=== PATIENT | male | born 1990 | race Caucasian/White ===

== ENCOUNTER 2021-06-29 08:45 | Emergency (ER) | payer OTHER, SELFPAY ==
--- NOTE | ~2021-06-29 | XR_ITS ---
EXAMINATION: XR chest 2V DATE: 06/29/2021 09:40 INDICATION: Right upper back pain and shortness of breath TECHNIQUE: PA and lateral views of the chest were obtained. COMPARISON: Chest radiograph dated 10/08/2013 FINDINGS: The lungs remain clear with no focal airspace opacities, pulmonary edema, pleural effusion or pneumot horax. The cardiomediastinal silhouette is normal. Visualized bones and soft tissues are unremarkable . IMPRESSION: 1. No acute cardiopulmonary disease. Reviewed, dictated and finalized at [facility].
--- NOTE | ~2021-06-29 | CT_ITS ---
EXAMINATION: CTA chest PE protocol DATE: 06/29/2021 11:41 INDICATION: Shortness of breath. Elevated d-dimer. Right upper posterior chest pain. TECHNIQUE: Computed tomography (CT) pulmonary angiogram of the chest was performed with 100 mL Omnipa que-350 intravenous contrast. Additional 3D reconstructions utilizing coronal maximum intensity proje ction (MIP) were performed. Automated exposure control and iterative reconstruction technique were em ployed. The dose-length product was 344.62 mGy-cm. COMPARISON: None FINDINGS: Good contrast opacification of the pulmonary arteries. There is mild streak artifact from dense contr ast in the superior vena cava and right atrium. Mild scattered respiratory motion artifact which does not significantly limit evaluation. Pulmonary embolism in the lateral basilar segmental and more per ipheral subsegmental pulmonary arteries of the right lower lobe. No other pulmonary emboli identified . Reticular and groundglass opacities in the lateral basilar segment of the right lower lobe peripher al to the embolized pulmonary artery likely combination of pulmonary infarct and atelectasis. No pneu monia, pulmonary edema, pleural effusion or pneumothorax. Heart size is normal. No rightward bowing o f the ventricular septum to suggest right heart strain. No pericardial effusion. Thoracic aorta is no rmal in caliber with no dissection. No pathologically enlarged thoracic lymphadenopathy. 8 mm cyst in the right hepatic lobe. Visualized upper abdomen is otherwise unremarkable. Bones are unremarkable. IMPRESSION: 1. Pulmonary embolism with relatively low clot burden in the lateral basilar pulmonary of the right l ower lobe with associated more peripheral lung disease likely combination of infarct and atelectasis. No associated right heart strain. Reviewed, dictated and finalized at location [facility]. IMPRESSION: 1. Pulmonary embolism with relatively low clot burden in the lateral basilar pu lmonary of the right lower lobe with associated more peripheral lung disease li alex combination of infarct and atelectasis. No associated right heart strain.
[2021-06-29 09:07] VITALS: BP 120/91; PULSE 80; RESP 20; TEMP 36.7; O2SAT 98
--- NOTE | 2021-06-29 09:29 | ECG_ITS ---
Measurements Intervals [place] Rate: 67 P: 68 OK: 138 QRS: 63 QRSD: 113 T: 62 QT: 381 QTc: 405 Interpretive Statements SINUS RHYTHM WITH SINUS ARRHYTHMIA NORMAL ELECTROCARDIOGRAM NO PREVIOUS ECG AVAILABLE FOR COMPARISON Electronically Signed On 06-29-2021 16:58:52 CDT by Edgar Kelly M.D.
--- NOTE | 2021-06-29 09:36 | ED.SOB ---
HPI - SOB/Dyspnea General Chief Complaint: Shortness of Breath/Dyspnea Stated Complaint: RIGHT SIDED PAIN Source: patient Mode of arrival: ambulatory Limitations: no limitations History of Present Illness HPI Narrative: this is a 31-year-old gentleman presents with some pain right lower lung field specially with movement and deep inspiration no history of asthma, the patient is a smoker no recent illnesses, there is no cough. No fever chills no chest pain no abdominal pain no dysuria or hematuria. Onset (ago): hour(s) Timing: constant Severity: moderate Exacerbating factors: movement and other ( With deep inspiration) Relieving factors: nothing Related Data Allergies Allergy/AdvReac Type Severity Reaction Status Date / Time No Known Allergies Allergy Verified 06/29/21 12:24 Review of Systems Review of Systems: All systems reviewed & are unremarkable except as noted in HPI and below PMFSH Past Medical History Medical History Patient denies medical problems Exam Const: General: no acute distress and alert Orientation/consciousness: patient oriented x3 HENMT: Head: normal to inspection Eyes: Conjunctivae: conjunctivae normal Pupils: Equal, round and reactive pupils present Neck: Neck: normal visual inspection, no lymphadenopathy and no meningeal signs Chest: Chest palpation & inspection: normal inspection of the chest Resp: Effort & Inspection: normal respiratory effort Auscultation: clear to auscultation bilaterally Cardio: Rate: regular rate Rhythm: regular rhythm GI: GI Palp: Yes Soft to palpation Percussion: Yes normal to percussion : Testes: Testes normal Urinary Catheter: Urinary Catheter: patent and draining Skin: General skin exam: normal color Rashes: no rashes Neuro: General: patient oriented x3 and moves all extremities Extrem: General: normal to inspection and no pedal edema Psych: Mental Status: mental status grossly normal Affect: normal affect Attitude: cooperative Course Course Emergency Course: patient had EKG blood work and a chest x-ray performed, patient received IM Toradol and after reassessment patient's pain level has improved. Vital Signs Vital signs: Vital Signs Temperature 36.7 C 06/29/21 09:07 Pulse Rate 80 06/29/21 09:07 Respiratory Rate 20 06/29/21 09:07 Blood Pressure 120/91 H 06/29/21 09:07 Pulse Oximetry 98 06/29/21 09:07 Temperature 36.7 C 06/29/21 09:07 Pulse Rate 80 06/29/21 09:07 Respiratory Rate 20 06/29/21 09:07 Blood Pressure 120/91 H 06/29/21 09:07 Pulse Oximetry 98 06/29/21 09:07 Critical Care Time Critical Care Time Critical Care Time: No Discharge Plan Discharge Clinical Impression: Pulmonary embolism Qualifiers: Pulmonary embolism type: unspecified Chronicity: acute Acute cor pulmonale presence: without acute cor pulmonale Qualified Code(s): I26.99 - Other pulmonary embolism without acute cor pulmonale Patient Disposition: Home, Self-Care Condition: Stable Instructions: Antibiotic Form, Pulmonary Embolism (ED) Additional Instructions: take medicine as prescribed, avoid any kind of ibuprofen pain medication, can only take Tylenol extra-strength and follow with primary care physician within 1 week for further evaluation and treatment. Prescriptions: New Eliquis 5 mg tablet 10 mg PO BID Qty: 14 RF: 0 Follow-up/Referrals: Bennie Rudolph MD [Primary Care Provider] - Time of Disposition: 12:40
[2021-06-29] MEDS: KETOROLAC (*BKC) 60 MG/2 ML VIAL IM (09:44)
[2021-06-29 09:52] LABS: Basophils Absolute Auto 0.09 K/mm3 (0.00-0.10); Basophils Percent Auto 0.6 % (0.0-1.0); Eosinophils Absolute Auto 0.24 K/mm3 (0.02-0.50); Eosinophils Percent Auto 1.7 % (1.0-6.0); Hematocrit 43.5 % (40.0-54.0); Hemoglobin 15.2 g/dL (14.0-18.0); Immature Granulocyte Absolute 0.05 K/mm3 (0.00-0.00); Immature Granulocyte Percent A 0.4 % (0.0-0.0); Lymphocytes Absolute Auto 2.27 K/mm3 (1.10-4.50); Lymphocytes Percent Auto 16.2 % (18.0-42.0); Mean Corpuscular HGB Conc 34.9 g/dL (32.0-36.0); Mean Corpuscular Hemoglobin 32.8 pg (27.0-31.0); Mean Corpuscular Volume 93.8 fL (78.0-102.0); Mean Platelet Volume 9.9 fl (8.7-11.0); Monocytes Absolute Auto 1.31 K/mm3 (0.10-0.90); Monocytes Percent Auto 9.3 % (2.0-11.0); Neutrophils Absolute Auto 10.1 K/mm3 (1.7-7.2); Neutrophils Percent Auto 71.8 % (50.0-70.0); Platelet Count Result 277 K/mm3 (150-420); Red Blood Count 4.64 M/mm3 (4.70-6.10); Red Cell Distribution Width 12.9 % (11.6-14.4)
[2021-06-29 10:08] LABS: Alanine Aminotransferase 17 U/L (16-63); Albumin Level 3.5 g/dL (3.4-5.0); Alkaline Phosphatase 100 U/L (46-116); Anion Gap 9 mmol/L (8-16); Aspartate Amino Transferase 19 U/L (15-37); Bilirubin,Total 0.6 mg/dL (0.00-1.00); Blood Urea Nitrogen 6 mg/dL (7-18); Calcium 8.8 mg/dL (8.5-10.1); Carbon Dioxide 26 mmol/L (21-32); Chloride 101 mmol/L (98-108); Estimated CRCL calculation 111 ml/min; Estimated Glomerular Filt Rate > 60; Glucose 100 mg/dL (70-99); Osmolality Calculated 279 mOsm/kg (285-295); Potassium 3.6 mmol/L (3.5-5.1); Sodium 136 mmol/L (136-145); Total Protein 7.4 g/dL (6.4-8.2); Troponin I 4.7 ng/L (0.00-60.4)
[2021-06-29 10:24] LABS: D Dimer 0.97 mg/L (0.19-0.50)
[2021-06-29 11:12] VITALS: O2SAT 98
[2021-06-29] MEDS: APIXABAN 2.5 MG TABLET 10 MG PO (12:45)
[2021-06-29 12:50] VITALS: BP 120/91; PULSE 80; RESP 20; TEMP 36.7; O2SAT 98
--- NOTE | 2021-06-29 13:14 | PC.NURSE ---
pt is to follow up with Dr Perez
== END 2021-06-29 12:53 | disposition home or self-care (01) ==
PROVIDERS: Emergency Provider Emergency Medicine; PCP Internal Medicine
DX: I26.99 Other pulmonary embolism without acute cor pulmonale (principal)
CPT/HCPCS: 36415; 71046; 71275; 80053; 84484; 85025; 85380; 93005; 96372; 99284; A9270; J1885; Q9967

== ENCOUNTER 2021-06-30 08:26 | Emergency (ER) | payer OTHER, SELFPAY ==
--- NOTE | ~2021-06-30 | CT_ITS ---
EXAMINATION: CTA chest PE protocol DATE: 06/30/2021 10:14 INDICATION: Worsening chest pain, dyspnea. Known pulmonary embolism. TECHNIQUE: Computed tomography angiography (CTA) of the chest was performed with 100 mL Omnipaque-350 intravenous contrast timed to evaluate the pulmonary arteries. Coronal maximum intensity projection 3D-reconstructions were created by the technologist. Automated exposure control and iterative reconst ruction technique were employed. Exam dose: 485.76 mGy-cm total exam DLP. COMPARISON: 06/29/2021 CT pulmonary scan FINDINGS: Intraluminal arterial thrombus is identified in the posterior basilar and lateral basilar s egments of the right lower lobe, increased since 06/29/2021. There is increased right lower lobe infil trate consistent with right lower lobe infarct and atelectasis. There is minimal dependent atelectasis in the dependent left lower lobe. The lungs are otherwise gordy r. Normal heart size. No pericardial or pleural effusion. No thoracic aortic aneurysm or dissection. Probable 7.5 mm right hepatic cyst. IMPRESSION: Increased clot in the right lower lobe, involving posterior and lateral basilar segmenta l arteries, with increased right lower lobe infiltrate, likely due to combination of infarct and atel ectasis Reviewed, dictated and finalized at [facility]. Reviewed, dictated and finalized at location [facility]. IMPRESSION: Increased clot in the right lower lobe, involving posterior and la teral basilar segmental arteries, with increased right lower lobe infiltrate, l ikely due to combination of infarct and atelectasis
[2021-06-30 08:35] VITALS: BP 122/75; PULSE 72; RESP 20; TEMP 37.1; O2SAT 99
--- NOTE | 2021-06-30 08:50 | ED.SOB ---
HPI - SOB/Dyspnea General Chief Complaint: Shortness of Breath/Dyspnea <Hever Tran MD - Last Filed: 06/30/21 12:39> Stated Complaint: CHEST PAIN <Hever Tran MD - Last Filed: 06/30/21 12:39> Time Seen by Provider: 06/30/21 08:53 <Hever Tran MD - Last Filed: 06/30/21 12:39> Source: patient and RN notes reviewed <Hever Tran MD - Last Filed: 06/30/21 12:39> Mode of arrival: ambulatory <Hever Tran MD - Last Filed: 06/30/21 12:39> Limitations: no limitations <Hever Tran MD - Last Filed: 06/30/21 12:39> History of Present Illness HPI Narrative: Patient states he was diagnosed with the PE yesterday. He was sent home on Eliquis and Tylenol. He says he has been miserable overnight with increasing pain in his back chest. Hurts to take a deep breath. Hurts to lay down and has pain with movement. Feels like he is more short of breath than he was yesterday. <Hever Tran MD - Last Filed: 06/30/21 12:39> MD elicited complaint: shortness of breath and pain with inspiration <Hever Tran MD - Last Filed: 06/30/21 12:39> Pertinent past history: PE <Hever Tran MD - Last Filed: 06/30/21 12:39> Onset (ago): day(s) (2) <Hever Tran MD - Last Filed: 06/30/21 12:39> Timing: constant and progressively worsening <Hever Tran MD - Last Filed: 06/30/21 12:39> Severity: moderate <Hever Tran MD - Last Filed: 06/30/21 12:39> Exacerbating factors: lying flat, exertion, movement, inspiration and deep breaths <MD Marce Atkinson Last Filed: 06/30/21 12:39> Relieving factors: nothing <Hever Tran MD - Last Filed: 06/30/21 12:39> Known history of: PE <Hever Tran MD - Last Filed: 06/30/21 12:39> Associated symptoms: pain with inspiration <Hever Tran MD - Last Filed: 06/30/21 12:39> Treatment prior to arrival: none <Hever Tran MD - Last Filed: 06/30/21 12:39> Related Data Home oxygen amount: none <Hever Tran MD - Last Filed: 06/30/21 12:39> Allergies/Adverse Reactions: Allergies Allergy/AdvReac Type Severity Reaction Status Date / Time No Known Allergies Allergy Verified 06/29/21 12:24 <Hever Tran MD - Last Filed: 06/30/21 12:39> Review of Systems Review of Systems: All systems reviewed & are unremarkable except as noted in HPI and below <Hever Tran MD - Last Filed: 06/30/21 12:39> Constitutional: Constitutional: Denies chills and Denies fever(s) <Hever Tran MD - Last Filed: 06/30/21 12:39> Cardiovascular: Cardiovascular: Reports as per HPI and Denies rapid heart rate <Hever Tran MD - Last Filed: 06/30/21 12:39> Respiratory: Respiratory: Reports as per HPI <Hever Tran MD - Last Filed: 06/30/21 12:39> Gastrointestinal: Gastrointestinal: Denies nausea and Denies vomiting <Hever Tran MD - Last Filed: 06/30/21 12:39> PMFSH Past Medical History Medical History: Medical History (Updated 06/30/21 @ 12:25 by Hever Tran MD) Patient denies medical problems <Hever Tran MD - Last Filed: 06/30/21 12:39> Surgical History Surgical History: Surgical History (Updated 06/30/21 @ 09:10 by Hever Tran MD) No pertinent past surgical history <Hever Tran MD - Last Filed: 06/30/21 12:39> Exam Const: General: healthy appearing, no acute distress and alert <Hever Tran MD - Last Filed: 06/30/21 12:39> Nutritional Appearance: well nourished <Hever Tran MD - Last Filed: 06/30/21 12:39> Orientation/consciousness: patient oriented x3 <Hever Tran MD - Last Filed: 06/30/21 12:39> HENMT: Head: normal to inspection <Hever Tran MD - Last Filed: 06/30/21 12:39> Ears: external ears normal <Hever Tran MD - Last Filed: 06/30/21 12:39> Eyes: Conjunctivae: conjunctivae normal <Hever Tran MD - Last Filed: 06/30/21 12:39> Pupils: Equal, round and reactive pupils present
[2021-06-30 09:30] LABS: Anion Gap 9 mmol/L (8-16); Blood Urea Nitrogen 7 mg/dL (7-18); Calcium 8.7 mg/dL (8.5-10.1); Carbon Dioxide 25 mmol/L (21-32); Chloride 101 mmol/L (98-108); Estimated Glomerular Filt Rate > 60; Glucose 96 mg/dL (70-99); Osmolality Calculated 278 mOsm/kg (285-295); Potassium 3.7 mmol/L (3.5-5.1); Sodium 135 mmol/L (136-145)
[2021-06-30] MEDS: HYDROmorphone HCL INJ (*CRX) 2 MG/ML VIAL 0.5 MG IV PUSH (09:46)
[2021-06-30] MEDS: SODIUM CHLORIDE 0.9% IV 1,000 ML 999 ML IV CONT (09:51)
--- NOTE | 2021-06-30 10:02 | PC.NURSE ---
pt to xray per wheelchair with xray staff.
--- NOTE | 2021-06-30 11:01 | PC.NURSE ---
report to NOHEMY Rivera. no questions or concerns at this time. awaiting call back from [facility] for possible transfer.
[2021-06-30 11:23] LABS: SARS-CoV-2 Ag Negative (Negative)
[2021-06-30 12:35] VITALS: BP 131/80; PULSE 72; RESP 18; TEMP 36.6; O2SAT 98
== END 2021-06-30 12:37 | disposition home or self-care (01) ==
PROVIDERS: Emergency Provider Emergency Medicine; PCP Internal Medicine
DX: I26.93 Single subsegmental thrombotic pulmonary embolism without acute cor pulmonale (principal); Z20.822 Contact with and (suspected) exposure to COVID-19
CPT/HCPCS: 36415; 71275; 80048; 87426; 96361; 96374; 99284; C9803; J1170; J7030; Q9967

== ENCOUNTER 2024-06-29 07:42 | Outpatient (CLI) | payer OTHER, SELFPAY | END 2024-06-29 07:43 | disposition home or self-care (01) | LOC: ANHAUDIO 07:42 | PROVIDERS: Visit Provider Otolaryngology Otolaryngology/Facial Plastic Surgery | DX: H90.71 Mixed conductive and sensorineural hearing loss, unilateral, right ear, with unrestricted hearing on the contralateral side (principal); H93.13 Tinnitus, bilateral; H71.01 Cholesteatoma of attic, right ear | CPT/HCPCS: 92557; 92567 ==

== ENCOUNTER 2024-07-09 15:29 | Outpatient (CLI) | payer OTHER, SELFPAY ==
--- NOTE | ~2024-07-09 | CT_ITS ---
EXAMINATION: CT IAC/mastoids BI wo con DATE: 07/09/2024 16:01 INDICATION: Right ear cholesteatoma TECHNIQUE: Computed tomography (CT) of the temporal bones was performed without intravenous contrast. The dose-length product was 329.83 mGy-cm. COMPARISON: None FINDINGS: RIGHT TEMPORAL BONE: The external auditory canal is normal. Opacification with soft tissue density within medial aspect of the middle ear cavity extending to the attic and inferior right mastoid air cells. The tympanic memb adriel is either absent or retracted. There is erosion of the scutum. There is medial displacement and distortion of the normal anatomy of the ossicular chain. There also appears to be decrease in the vol ume of bone associated with the ossicular chains suggesting some erosion of the incus and/or malleolu s. The oval window, vestibule, cochlea, semicircular canals, internal auditory canal, vestibular aqu educt and course of the facial nerve are normal. The external auditory canal and jugular bulb are unr emarkable. LEFT TEMPORAL BONE: The external auditory canal, tympanic membrane, ossicles and scutum are normal. The mastoid air cells , middle ear cavity including Prussak's space are clear. The oval window, vestibule, cochlea, semicir cular canals, internal auditory canal, vestibular aqueduct and course of the facial nerve are normal. The external auditory canal and jugular bulb are unremarkable. IMPRESSION: 1. Soft tissue density medial aspect of the middle ear cavity extending into the attic and mastoid ai r cells consistent with reported history of cholesteatoma. 2. Likely secondary medial retraction of the tympanic membrane, erosion of the scutum and disruption of this encroaching with likely erosion of portions of the ossicles. 3. Normal CT of the left temporal bone. Reviewed, dictated and finalized at location [facility]. IMPRESSION: 1. Soft tissue density medial aspect of the middle ear cavity extending into th e attic and mastoid air cells consistent with reported history of cholesteatoma . 2. Likely secondary medial retraction of the tympanic membrane, erosion of the scutum and disruption of this encroaching with likely erosion of portions of th e ossicles. 3. Normal CT of the left temporal bone.
== END 2024-07-09 15:30 | disposition home or self-care (01) ==
LOC: CHSIMG 15:30
PROVIDERS: PCP Family Medicine; Visit Provider Otolaryngology Otolaryngology/Facial Plastic Surgery
DX: H71.01 Cholesteatoma of attic, right ear (principal)
CPT/HCPCS: 70480